=== PATIENT | male | born 1965 | race Caucasian/White ===

== ENCOUNTER 2016-10-17 06:04 | Emergency (ER) | payer MEDICAID, OTHER ==
[~2016-10-17] VITALS: Ht 182.9 cm; Wt 75.8 kg
[2016-10-17 06:19] VITALS: BP 121/71; PULSE 83; RESP 18; TEMP 97.7; O2SAT 97
[2016-10-17] MEDS ORDERED: OSEL75 PO (06:44)
[2016-10-17] MEDS ORDERED: OSELTAMIVIR PHOSPHATE 75 MG CAP PO ONE (06:45)
--- NOTE | 2016-10-17 06:45 | PD ---
HPI Chief Complaint: Cold / Flu Symptoms Time Seen by Provider: 06:32 Travel History International Travel<30 days: No Contact w/Intl Traveler<30days: No Traveled to known affect area: No History of Present Illness HPI 51-year-old male arrives with "flulike symptoms." He reports myalgias, headache , rhinorrhea, diarrhea. Duration about 2 days. He has no chest pain. He has had no fever. He also complains of left inguinal groin pain where an inguinal herniarrhaphy was performed about 6-8 months ago. He follows with general surgery in [place]. He had a few episodes of diarrhea this morning. PFSH Past Medical History Hx Anticoagulant Therapy: No Cancer: No Cardiovascular Problems: No Chemotherapy: No Cerebrovascular Accident: No Diabetes: No Diminished Hearing: No Endocrine: No Gastrointestinal Disorders: No Genitourinary: No Hepatitis: No Hiatal Hernia: No Hypertension: No Immune Disorder: No Inguinal Hernia: Yes Musculoskeletal: Yes (bursitis) Neurologic: No Psychiatric: No Reproductive: No Respiratory: No Immunizations Current: Yes Pneumonia: Yes Shingles: Yes Thyroid Disease: No Tetanus Vaccination: < 5 Years Influenza Vaccination: No Past Surgical History Abdominal Surgery: Yes (Bilat inguinal hernia repair 03/07/16) AICD: No Body Medical Devices: FOREIGN BODY (METAL) LEFT SHOULDER Hysterectomy: No Joint Replacement: No Neurologic Surgery: No Oral Surgery: Yes (wisdom teeth removal ) Pacemaker: No Other Surgery: Yes (deviated septum ) Social History Alcohol Use: Yes (4 beers per day ) Tobacco Use: Yes (1/2 pack per day ) Substance Use: No Allergies-Medications (Allergen,Severity, Reaction): Coded Allergies: No Known Allergies (Unverified , 10/17/16) Reported Meds & Prescriptions Reported Meds & Active Scripts Active No Active Prescriptions or Reported Medications Review of Systems General / Constitutional: No: Fever Gastrointestinal: Positive: Diarrhea Physical Exam Narrative GENERAL: 51-year-old male well-nourished well-developed no acute distress SKIN: Warm and dry. HEAD: Atraumatic. Normocephalic. EYES: Pupils equal and round. No scleral icterus. No injection or drainage. ENT: No nasal bleeding or discharge. Mucous membranes pink and moist. NECK: Trachea midline. No JVD. CARDIOVASCULAR: Regular rate and rhythm. No murmur appreciated. RESPIRATORY: No accessory muscle use. Clear to auscultation. Breath sounds equal bilaterally. GASTROINTESTINAL: Abdomen soft, non-tender, nondistended. Hepatic and splenic margins not palpable. MUSCULOSKELETAL: No obvious deformities. No clubbing. No cyanosis. No edema. NEUROLOGICAL: Awake and alert. No obvious cranial nerve deficits. Motor grossly within normal limits. Normal speech. PSYCHIATRIC: Appropriate mood and affect; insight and judgment normal. Data Data Last Documented VS Vital Signs Date Time Temp Pulse Resp B/P Pulse Ox O2 Delivery O2 Flow Rate FiO2 10/17/16 06:35 Room Air 10/17/16 06:19 97.7 83 18 121/71 97 MDM Medical Decision Making Medical Screen Exam Complete: Yes Emergency Medical Condition: Yes Medical Record Reviewed: Yes Differential Diagnosis Influenza, pneumonia, gastroenteritis, inguinal groin pain Narrative Course Empiric coverage for influenza is considered reasonable. The patient has general surgeon Lef[place]. Return precautions discussed. Diagnosis Primary Impression: Flu-like symptoms Additional Impression: Lt inguinal pain Referrals: General Surgeon 2 days Additional Instructions: You have a choice when it comes to health care, and we are glad that you chose [facility]. Hopefully, we have met your expectations on today's visit. You are welcome to return to [facility] at any time, as we are committed to meeting the health care needs of our community. Med/Other Pt SpecificInfo: Prescription(s) given Scripts Oseltamivir (Tamiflu)75 Mg Cap75 Mg PO BID 5 Days Ref 0 Prov:Сергей Thompson MD 10/17/16 Disposition: 01 DISCHARGE HOME Condition: Stable Сергей Thompson MD Oct 17, 2016 06:45
== END 2016-10-17 07:08 | disposition home or self-care (01) ==
LOC: PHED 06:04
DX: R10.32 Left lower quadrant pain (principal); F17.210 Nicotine dependence, cigarettes, uncomplicated
CPT/HCPCS: 99283

== ENCOUNTER 2017-01-09 10:32 | Emergency (ER) | payer MEDICAID ==
[~2017-01-09] VITALS: Ht 185.4 cm; Wt 74.8 kg
[~2017-01-09 10:32] MED LIST: OSEL75 PO
[2017-01-09 10:35] VITALS: BP 132/77; PULSE 77; RESP 16; TEMP 98.3; O2SAT 98
[2017-01-09] MEDS ORDERED: NAPR500 PO (11:00)
[2017-01-09] MEDS ORDERED: NAPROXEN 500 MG TAB PO ONE (11:00)
[2017-01-09] MEDS ORDERED: CYCL1TAB29 PO (11:00)
--- NOTE | 2017-01-09 11:00 | PD ---
HPI Chief Complaint: Back/ Neck Pain or Injury Time Seen by Provider: 10:42 Travel History International Travel<30 days: No Contact w/Intl Traveler<30days: No Traveled to known affect area: No History of Present Illness HPI 50-year-old male 5 days of neck pain. Describes pain on his lower right cervical spine, with some tenderness. He states he thinks he injured it either climbing into a boat and having to turn his neck and a funny angle or working on his car he is not sure. He has pain worse when he moves certain directions when he lifts his arm over his head. His a back and neck problems before. He your so ago he fell and broke several vertebrae in his back, did not are surgery , not sure which ones. He also had a hyperextension injury years and years ago. He has not taken anything for it. He states he's taken ibuprofen 800 mg in the past which has helped. No other complaints. History Past Medical History Medical History: Denies Significant Hx Influenza Vaccination: No Social History Alcohol Use: Yes (3 beers, daily) Tobacco Use: Yes (1/2 pack per day ) Allergies-Medications (Allergen,Severity, Reaction): Coded Allergies: No Known Allergies (Unverified , 01/09/17) Reported Meds & Prescriptions Reported Meds & Active Scripts Active No Active Prescriptions or Reported Medications Review of Systems Except as stated in HPI: all other systems reviewed are Neg Physical Exam Narrative GENERAL: Well-appearing 51-year-old man, no acute distress. SKIN: Warm and dry. CARDIOVASCULAR: Warm and well perfused. RESPIRATORY: Normal rate and effort. MUSCULOSKELETAL: Normal appearance of the neck. Full painless range of motion. Minimal pain on the lower right side the neck, just lateral to the midline, about C7. NEUROLOGICAL: Awake and alert. No gross deficits. Data Data Last Documented VS Vital Signs Date Time Temp Pulse Resp B/P Pulse Ox O2 Delivery O2 Flow Rate FiO2 01/09/17 10:35 98.3 77 16 132/77 98 Orders Naproxen (Naprosyn) (01/09/17 11:00) [facility] Medical Decision Making Medical Screen Exam Complete: Yes Emergency Medical Condition: Yes Differential Diagnosis Neck strain or sprain, muscle spasm, injury, other Narrative Course Medical decision-making new 50-year-old man with neck strain. Looks fine. No concerning neurologic symptoms. Recommend outpatient follow-up, NSAIDs, muscle relaxers as needed. Diagnosis Primary Impression: Neck strain Departure Forms: Tests/Procedures, Work Release Special Instructions: Patient can return to normal activity tomorrow, January 10. Additional Instructions: You can return to normal activity tomorrow. Take Naprosyn as prescribed. Use Flexeril if needed for muscle spasms. Do not take this medication and drive or work, do not combine this medication with alcohol or other medications. Med/Other Pt SpecificInfo: Prescription(s) given Scripts Cyclobenzaprine (Flexeril)10 Mg Tab10 Mg PO TID PRN (MUSCLE SPASM) #21 TAB Prov:Jayson Fuller MD 01/09/17 Naproxen (Naprosyn)500 Mg Ndo382 Mg PO BID PRN (PAIN SCALE 1 TO 10) #20 TAB Prov:Jayson Fuller MD 01/09/17 Disposition: 01 DISCHARGE HOME Condition: Stable Jayson Fuller MD Jan 09, 2017 11:00
== END 2017-01-09 11:09 | disposition home or self-care (01) ==
LOC: PHEFT 10:32
DX: S16.1XXA Strain of muscle, fascia and tendon at neck level, initial encounter (principal); F17.210 Nicotine dependence, cigarettes, uncomplicated; X58.XXXA Exposure to other specified factors, initial encounter; Y93.9 Activity, unspecified; Y92.9 Unspecified place or not applicable; Y99.8 Other external cause status
CPT/HCPCS: 99283

== ENCOUNTER 2017-01-23 12:19 | Emergency (ER) | payer SELFPAY ==
[~2017-01-23] VITALS: Ht 185.4 cm; Wt 74.0 kg
[~2017-01-23 12:19] MED LIST changes: +CYCL1TAB29 PO; +NAPR500 PO; -OSEL75 PO
[2017-01-23 12:26] VITALS: BP 137/82; PULSE 94; RESP 18; TEMP 98; O2SAT 96
--- NOTE | 2017-01-23 12:43 | PD ---
HPI Chief Complaint: Cold / Flu Symptoms Time Seen by Provider: 12:37 Travel History International Travel<30 days: No Contact w/Intl Traveler<30days: No Traveled to known affect area: No History of Present Illness HPI 51-year-old male presents to the emergency room for evaluation of mildly productive cough and sore throat for the past 2 days. Patient states it started with a sore/scratchy throat and developed into a cough later on. Cough is mildly productive of yellow sputum. Patient reports associated right pleuritic chest pain with deep coughing but denies any other shortness of breath or chest pain. He has a mild headache as well. Denies congestion or earache. Patient has been taking [id number] medications for symptoms without significant relief. He denies fever, chills, nausea, and vomiting. Smokes half a pack of cigarettes per day. Denies history of asthma or lung disease. PFSH Past Medical History Hx Anticoagulant Therapy: No Cancer: No Cardiovascular Problems: No Chemotherapy: No Cerebrovascular Accident: No Diabetes: No Diminished Hearing: No Endocrine: No Gastrointestinal Disorders: No Genitourinary: No Hepatitis: No Hiatal Hernia: No Hypertension: No Immune Disorder: No Inguinal Hernia: Yes Musculoskeletal: Yes (bursitis) Neurologic: No Psychiatric: No Reproductive: No Respiratory: No Immunizations Current: Yes Pneumonia: Yes Shingles: Yes Thyroid Disease: No Past Surgical History Abdominal Surgery: Yes (Bilat inguinal hernia repair w/mesh 03/07/16) AICD: No Body Medical Devices: FOREIGN BODY (METAL) LEFT SHOULDER Hysterectomy: No Joint Replacement: No Neurologic Surgery: No Oral Surgery: Yes (wisdom teeth removal ) Pacemaker: No Other Surgery: Yes (deviated septum ) Social History Alcohol Use: Yes (3 beers, daily) Tobacco Use: Yes (1/2 pack per day ) Substance Use: No Allergies-Medications (Allergen,Severity, Reaction): Coded Allergies: No Known Allergies (Unverified , 01/23/17) Reported Meds & Prescriptions Reported Meds & Active Scripts Active No Active Prescriptions or Reported Medications Review of Systems Except as stated in HPI: all other systems reviewed are Neg Physical Exam Narrative GENERAL: Well-nourished, well-developed male in no acute distress. Afebrile. Ambulatory. SKIN: Focused skin assessment warm/dry. HEAD: Normocephalic. EYES: No scleral icterus. No injection or drainage. ENT: Mucosa pink and moist. Very mild erythema without edema or exudates. No uvular edema. No uvular, palatal, or tonsillar deviation. Airway patent. Nasal turbinates appear normal without nasal blood, purulent drainage or septal hematoma. EARS: Bilateral pinnae and external canals appear within normal limits. Bilateral tympanic membranes without erythema, dullness or perforation. NECK: Supple, trachea midline. No JVD or lymphadenopathy. CARDIOVASCULAR: Regular rate and rhythm without murmurs, gallops, or rubs. RESPIRATORY: Breath sounds equal bilaterally. No accessory muscle use. Data Data Last Documented VS Vital Signs Date Time Temp Pulse Resp B/P Pulse Ox O2 Delivery O2 Flow Rate FiO2 01/23/17 12:35 96 Room Air 01/23/17 12:26 98.0 94 18 137/82 MDM Medical Decision Making Medical Screen Exam Complete: Yes Emergency Medical Condition: Yes Medical Record Reviewed: Yes Differential Diagnosis URI, flu, pneumonia, bronchitis Narrative Course 51-year-old male presents to the emergency room for evaluation of mildly productive cough and sore throat for the past 2 days. Smokes 1/2 pack cigarettes per day. Patient is afebrile and well-appearing in the emergency room. Resting comfortably in bed. He is not coughing. Lung sounds clear and equal bilaterally. No crackles, rales, wheezes, or rhonchi. No evidence of bacterial infection in the ears, nose, or throat. No indication for antibiotics at this time. This is viral URI. Patient was told to continue over -the-counter medications for symptoms and follow up with primary care physician if symptoms persist. Told to return for worsening symptoms such as fever, increasing productive cough, chest pain, shortness of breath. He understands and agrees to plan. Diagnosis Primary Impression: Upper respiratory infection Qualified Code: J00 - Acute nasopharyngitis Referrals: Primary Care Physician Patient Instructions: General Instructions, Upper Respiratory Infection (ED) Additional Instructions: Rest and drink plenty of fluids. Continue nizh-afm-[id number] medications for symptoms. Follow-up with a primary care physician if symptoms persist. Return to the emergency room for worsening symptoms. Scripts No Active Prescriptions or Reported Meds Disposition: 01 DISCHARGE HOME Condition: Stable Gabbie Decker Jan 23, 2017 12:43
== END 2017-01-23 12:49 | disposition home or self-care (01) ==
LOC: PHEFT 12:19
DX: J06.9 Acute upper respiratory infection, unspecified (principal); F17.210 Nicotine dependence, cigarettes, uncomplicated; R07.81 Pleurodynia; R51 Headache
CPT/HCPCS: 99282

== ENCOUNTER 2017-01-29 13:26 | Emergency (ER) | payer MEDICAID, OTHER ==
[~2017-01-29] VITALS: Ht 185.4 cm; Wt 73.0 kg
[2017-01-29 13:29] VITALS: BP 119/75; PULSE 87; RESP 16; TEMP 98.2; O2SAT 99
--- NOTE | 2017-01-29 14:50 | PD ---
HPI Chief Complaint: Injury Time Seen by Provider: 14:30 Travel History International Travel<30 days: No Contact w/Intl Traveler<30days: No Traveled to known affect area: No History of Present Illness HPI 51-year-old male presents to the emergency room for evaluation of right third toe pain, swelling, and bruising after injuring it 2 days ago. Patient states he thinks he broke his toe while playing soccer. He has been walking on states the pain is severe. It is localized to the proximal third toe with radiation into the foot. States he woke up this morning with large increase in swelling. He denies paresthesias. Patient has not taken anything for pain. PFSH Past Medical History Hx Anticoagulant Therapy: No Cancer: No Cardiovascular Problems: No Chemotherapy: No Cerebrovascular Accident: No Diabetes: No Diminished Hearing: No Endocrine: No Gastrointestinal Disorders: No Genitourinary: No Hepatitis: No Hiatal Hernia: No Hypertension: No Immune Disorder: No Inguinal Hernia: Yes (repaired) Musculoskeletal: Yes (bursitis) Neurologic: No Psychiatric: No Reproductive: No Respiratory: No Immunizations Current: Yes Pneumonia: Yes Shingles: Yes Thyroid Disease: No Influenza Vaccination: No Past Surgical History Abdominal Surgery: Yes (Bilat inguinal hernia repair w/mesh 03/07/16) AICD: No Body Medical Devices: FOREIGN BODY (METAL) LEFT SHOULDER Hysterectomy: No Joint Replacement: No Neurologic Surgery: No Oral Surgery: Yes (wisdom teeth removal ) Pacemaker: No Other Surgery: Yes (deviated septum metal from lt eye) Social History Alcohol Use: Yes (3 beers, daily; LAST DRINK 01/28/17) Tobacco Use: Yes (1/2 pack per day ) Substance Use: No Allergies-Medications (Allergen,Severity, Reaction): Coded Allergies: No Known Allergies (Unverified , 01/29/17) Reported Meds & Prescriptions Reported Meds & Active Scripts Active No Active Prescriptions or Reported Medications Review of Systems Except as stated in HPI: all other systems reviewed are Neg Physical Exam Narrative GENERAL: Well-nourished, well-developed male in no acute distress. Afebrile. Ambulatory. SKIN: Focused skin assessment warm/dry. Moderate amount of ecchymosis and mild erythema of the right third toe. HEAD: Normocephalic. EYES: No scleral icterus. No injection or drainage. NECK: Supple, trachea midline. No JVD or lymphadenopathy. CARDIOVASCULAR: Regular rate and rhythm without murmurs, gallops, or rubs. RESPIRATORY: Breath sounds equal bilaterally. No accessory muscle use. MUSCULOSKELETAL: No cyanosis. Moderate edema of the right third toe. Limited range of motion secondary to pain. Less than 2 second capillary refill distally. Data Data Last Documented VS Vital Signs Date Time Temp Pulse Resp B/P Pulse Ox O2 Delivery O2 Flow Rate FiO2 01/29/17 16:30 16 01/29/17 13:29 98.2 87 119/75 99 Orders Foot, Complete ([id number]) (01/29/17 ) Ketorolac Inj (Toradol Inj) (01/29/17 15:30) Splint Or Brace Apply/Monitor (01/29/17 15:39) [facility] Medical Decision Making Medical Screen Exam Complete: Yes Emergency Medical Condition: Yes Medical Record Reviewed: Yes Differential Diagnosis Fracture, sprain, strain, contusion Narrative Course 51-year-old male presents to the emergency room for evaluation of right third toe pain, swelling, and bruising for the past 2 days. Patient injured it while playing soccer. Physical exam reveals moderate edema and ecchymosis with extreme tenderness to palpation of the proximal third phalanx. Patient has been ambulatory. X-ray shows nondisplaced fracture of the third proximal phalanx. Toe was jose taped and patient given postop shoe. Told to follow up with a primary care physician or return for worsening symptoms. He understands and agrees to plan. Diagnosis Primary Impression: Toe fracture, right Qualified Code: S92.514A - Closed nondisplaced fracture of proximal phalanx of lesser toe of right foot, initial encounter Referrals: Primary Care Physician Patient Instructions: General Instructions, Toe Fracture (ED) Departure Forms: Tests/Procedures, Work Release Enter return to work date: Jan 31, 2017 Special Instructions: Light Duty until 02/04/2017 Additional Instructions: Rest and drink plenty of fluids. Take ibuprofen with food as directed, as needed for pain. Elevate, keep wrapped, Apply ice to the affected area for 20 minutes at a time, as needed for pain and swelling. Follow-up with a primary care physician. Return to the emergency room for worsening symptoms. Scripts No Active Prescriptions or Reported Meds Disposition: DISCHARGE HOME Condition: Stable Gabbie Decker Jan 29, 2017 14:50
[2017-01-29] MEDS ORDERED: KETOROLAC TROMETHAMINE 60 MG/2 ML (IM) VIAL IM ONE (15:30)
--- NOTE | 2017-01-29 16:09 | RADRPT ---
EXAM DATE/TIME: 01/29/2017 15:05 [facility] COMPARISON: No previous studies available for comparison. INDICATIONS : Right foot pain after kicking someone's alvares while playing soccer MEDICAL HISTORY : Foot and toe fractures SURGICAL HISTORY : None. ENCOUNTER: Initial ACUITY: 3 days PAIN SCORE: 8/10 LOCATION: Right foot FINDINGS: There is subtle fracturing at the distal aspect of the third proximal phalanx. This does not involve the PIP joint. It is not displaced. There is chronic degenerative change with joint space narrowin g at the first interphalangeal joint. There is some hypertrophic change seen at the medial distal as pect of the first proximal phalanx. CONCLUSION: 1. Acute nondisplaced fracturing of the distal aspect of the third proximal phalanx. 2. Degenerative change at the first interphalangeal joint. Delon Santana MD on January 29, 2017 at 15:51 Board Certified Radiologist. This report was verified electronically.
[2017-01-29 16:30] VITALS: RESP 16
[2017-01-29] MEDS ORDERED: CEPH-460 PO (16:34)
== END 2017-01-29 16:32 | disposition home or self-care (01) ==
LOC: PHED 13:26 → PHEFT 16:32
DX: S92.514A Nondisplaced fracture of proximal phalanx of right lesser toe(s), initial encounter for closed fracture (principal); X58.XXXA Exposure to other specified factors, initial encounter; Y93.66 Activity, soccer
CPT/HCPCS: 73630 ×2; 96372 ×2; 99284; J1885; L3260

== ENCOUNTER 2017-02-05 04:16 | Emergency (ER) | payer MEDICAID ==
[~2017-02-05] VITALS: Ht 182.9 cm; Wt 75.0 kg
[2017-02-05 04:23] VITALS: BP 103/71; PULSE 72; RESP 16; TEMP 97.6; O2SAT 97
[2017-02-05] MEDS ORDERED: ORPHENADRINE INJ 60 MG/2 ML AMP IM ONE (04:45)
[2017-02-05] MEDS ORDERED: KETOROLAC TROMETHAMINE 60 MG/2 ML (IM) VIAL IM ONE (04:45)
--- NOTE | 2017-02-05 04:52 | PD ---
HPI Chief Complaint: Musculoskeletal Complaint Time Seen by Provider: 04:21 Travel History International Travel<30 days: No Contact w/Intl Traveler<30days: No Traveled to known affect area: No History of Present Illness HPI The patient is a 51-year-old male, frequent visitor to this emergency department for minor problems, who complains of pain over the right greater trochanter area for 3 days. The patient states he fractured his right foot and is been walking abnormally on it. Actually the patient had a fractured third toe and was seen here on the of last month for this. PFSH Past Medical History Hx Anticoagulant Therapy: No Cancer: No Cardiovascular Problems: No Chemotherapy: No Cerebrovascular Accident: No Diabetes: No Diminished Hearing: No Endocrine: No Gastrointestinal Disorders: No Genitourinary: No Hepatitis: No Hiatal Hernia: No Hypertension: No Immune Disorder: No Inguinal Hernia: Yes (repaired) Musculoskeletal: Yes (bursitis) Neurologic: No Psychiatric: No Reproductive: No Respiratory: No Immunizations Current: Yes Pneumonia: Yes Shingles: Yes Thyroid Disease: No Past Surgical History Abdominal Surgery: Yes (Bilat inguinal hernia repair w/mesh 03/07/16) AICD: No Body Medical Devices: FOREIGN BODY (METAL) LEFT SHOULDER Hysterectomy: No Joint Replacement: No Neurologic Surgery: No Oral Surgery: Yes (wisdom teeth removal ) Pacemaker: No Other Surgery: Yes (deviated septum metal from lt eye) Social History Alcohol Use: Yes (2-3 BEERS DAILY) Tobacco Use: Yes (1/2 pack per day ) Substance Use: No Allergies-Medications (Allergen,Severity, Reaction): Coded Allergies: No Known Allergies (Unverified , 02/05/17) Reported Meds & Prescriptions Reported Meds & Active Scripts Active No Active Prescriptions or Reported Medications Review of Systems Except as stated in HPI: all other systems reviewed are Neg Physical Exam Narrative GENERAL: Well-nourished, well-developed patient. His vital signs are normal. SKIN: Focused skin assessment warm/dry. No skin rash is seen. HEAD: Normocephalic. EYES: No scleral icterus. No injection or drainage. NECK: Supple, trachea midline. No JVD or lymphadenopathy. CARDIOVASCULAR: Regular rate and rhythm without murmurs, gallops, or rubs. RESPIRATORY: Breath sounds equal bilaterally. No accessory muscle use. GASTROINTESTINAL: Abdomen soft, non-tender, nondistended. MUSCULOSKELETAL: No cyanosis, or edema. There is exquisite tenderness but no erythema over the greater trochanter on the right. No ecchymoses are seen. BACK: Nontender without obvious deformity. No CVA tenderness. Data Data Last Documented VS Vital Signs Date Time Temp Pulse Resp B/P Pulse Ox O2 Delivery O2 Flow Rate FiO2 02/05/17 04:23 97.6 72 16 103/71 97 Orders Ketorolac Inj (Toradol Inj) (02/05/17 04:45) Orphenadrine Inj (Norflex Inj) (02/05/17 04:45) Pelvis, Ap Only (Routine) (02/05/17 04:44) MDM Medical Decision Making Medical Screen Exam Complete: Yes Emergency Medical Condition: Yes Medical Record Reviewed: Yes Interpretation(s) The x-ray of the pelvis showed evidence of previous mesh used for hernia surgery but no acute findings. Differential Diagnosis Trochanteric bursitis, fracture greater trochanter, insertional tendinitis Narrative Course The patient has a right sided trochanteric bursitis. He will need to rest, use ice packs and is given Motrin, 800 mg 3 times daily. He needs to follow-up with his primary care physician this week. He is given off work for 7 days. Diagnosis Primary Impression: Trochanteric bursitis of right hip Additional Instructions: Take the Motrin regularly, 1 tablet 3 times daily. After for 5 days you have high anti-inflammatory levels and this usually goes away. Put ice locally to calm this down as well. We will give you an ice pack. Follow-up next week or later this week with your primary care physician. Med/Other Pt SpecificInfo: Prescription(s) given Scripts Tramadol 50 Mg Tab50 Mg PO Q6H PRN (PAIN) #30 TAB Ref 0 Prov:Santiago Padron MD 02/05/17 Ibuprofen 800 Mg [id number] Mg PO TID #33 TAB Ref 0 Prov:Santiago Padron MD 02/05/17 Disposition: 01 DISCHARGE HOME Condition: Stable Santiago Padron MD Feb 05, 2017 04:52
[2017-02-05] MEDS ORDERED: IBUP800T23 PO (05:44)
[2017-02-05] MEDS ORDERED: TRAM50TA PO (05:44)
--- NOTE | 2017-02-05 05:49 | RADRPT ---
EXAM DATE/TIME: 02/05/2017 05:04 [facility] COMPARISON: No previous studies available for comparison. INDICATIONS : Rightt lateral hip pain. MEDICAL HISTORY : None. SURGICAL HISTORY : Inguinal hernia repair. ENCOUNTER: Initial ACUITY: 3 days PAIN SCORE: 9/10 LOCATION: Right lateral hip FINDINGS: A single frontal view of the pelvis demonstrates no evidence of fracture. The bony pelvic ring is in tact. Bony mineralization is normal. The soft tissues are intact. CONCLUSION: Unremarkable examination of the pelvis. Jayson Dean MD on February 05, 2017 at 5:47 Board Certified Radiologist. This report was verified electronically.
== END 2017-02-05 06:05 | disposition home or self-care (01) ==
LOC: PHED 04:16
DX: M70.61 Trochanteric bursitis, right hip (principal); F17.200 Nicotine dependence, unspecified, uncomplicated; Z87.81 Personal history of (healed) traumatic fracture; Z87.39 Personal history of other diseases of the musculoskeletal system and connective tissue; Z86.69 Personal history of other diseases of the nervous system and sense organs; Y93.9 Activity, unspecified
CPT/HCPCS: 72170; 96372; 99284; J1885; J2360

== ENCOUNTER 2017-06-27 08:30 | Emergency (ER) | payer MEDICAID ==
[~2017-06-27] VITALS: Ht 182.9 cm; Wt 74.7 kg
[~2017-06-27 08:30] MED LIST changes: -CYCL1TAB29 PO; +IBUP1TAB7 PO; -NAPR500 PO; +TRAM50TA PO
[2017-06-27 08:35] VITALS: BP 143/73; PULSE 91; RESP 16; TEMP 98; O2SAT 98
--- NOTE | 2017-06-27 09:03 | PD ---
HPI Chief Complaint: Cold / Flu Symptoms Time Seen by Provider: 08:50 Travel History International Travel<30 days: No Contact w/Intl Traveler<30days: No Traveled to known affect area: No History of Present Illness HPI 51-year-old male presents emergency department with cough congestion and sore throat particularly on the right side of his throat and yesterday. The patient is a smoker states that he has not had to miss work in years and had to call in sick today because he was feeling under the weather. He relates a history that this happened to him last year and he was prescribed Tamiflu but couldn't afford it so didn't take it. He states he wouldn't be able to afford this year excess case as well. Denies any fever does endorse wet cough but has not actually seen any sputum. States that he's been having some achiness on the right side of his chest when he coughs. No abdominal pain nausea vomiting no rash. Symptoms are moderate, tense yesterday, gradually worsening, right throat. PFSH Past Medical History Hx Anticoagulant Therapy: No Cancer: No Cardiovascular Problems: No Chemotherapy: No Cerebrovascular Accident: No Diabetes: No Diminished Hearing: No Endocrine: No Gastrointestinal Disorders: No Genitourinary: No Hepatitis: No Hiatal Hernia: No Hypertension: No Immune Disorder: No Inguinal Hernia: Yes (repaired) Musculoskeletal: Yes (bursitis) Neurologic: No Psychiatric: No Reproductive: No Respiratory: No Immunizations Current: Yes Pneumonia: Yes Shingles: Yes Thyroid Disease: No Tetanus Vaccination: < 5 Years Influenza Vaccination: No Past Surgical History Abdominal Surgery: Yes (Bilat inguinal hernia repair w/mesh 03/07/16) AICD: No Body Medical Devices: FOREIGN BODY (METAL) LEFT SHOULDER Hysterectomy: No Joint Replacement: No Neurologic Surgery: No Oral Surgery: Yes (wisdom teeth removal ) Pacemaker: No Other Surgery: Yes (deviated septum metal from lt eye) Social History Alcohol Use: Yes (2-3 BEERS DAILY) Tobacco Use: Yes (1/2 pack per day ) Substance Use: No Allergies-Medications (Allergen,Severity, Reaction): Coded Allergies: No Known Allergies (Unverified Adverse Reaction, Unknown, 06/27/17) Reported Meds & Prescriptions Reported Meds & Active Scripts Active Tessalon Perles (Benzonatate) 100 Mg Cap 100 Mg PO TID PRN Review of Systems Except as stated in HPI: all other systems reviewed are Neg Physical Exam Narrative GENERAL: Well-nourished, well-developed patient. SKIN: Focused skin assessment warm/dry. HEAD: Normocephalic. EYES: No scleral icterus. No injection or drainage. ENT: TMs clear bilaterally, oropharynx minimal erythema, no swelling, we will midline. NECK: Supple, trachea midline. No JVD or lymphadenopathy. CARDIOVASCULAR: Regular rate and rhythm without murmurs, gallops, or rubs. RESPIRATORY: Breath sounds equal bilaterally. No accessory muscle use. GASTROINTESTINAL: Abdomen soft, non-tender, nondistended. MUSCULOSKELETAL: No cyanosis, or edema. BACK: Nontender without obvious deformity. No CVA tenderness. Data Data Last Documented VS Vital Signs Date Time Temp Pulse Resp B/P (MAP) Pulse Ox O2 Delivery O2 Flow Rate FiO2 06/27/17 08:42 16 98 Room Air 06/27/17 08:35 98.0 91 143/73 (96) Orders Orders Chest, Pa & Lat (06/27/17 ) Group A Rapid Strep Screen (06/27/17 09:01) Strep Culture (Group A) (06/27/17 09:08) Ed Discharge Order (06/27/17 09:33) MDM Medical Decision Making Medical Screen Exam Complete: Yes Emergency Medical Condition: Yes Differential Diagnosis Flu, strep, pneumonia, URI. Narrative Course Patient roomed emergency department, appears well and in no distress. Rapid strep negative. Patient states he wouldn't have Tamiflu if he tested positive therefore no indication to testing. Chest x-ray negative. He is stable for discharge for symptomatic management discussed return to ED criteria. Diagnosis Primary Impression: Upper respiratory infection Qualified Codes: J06.9 - Acute upper respiratory infection, unspecified Patient Instructions: General Instructions, Upper Respiratory Infection (DC) Departure Forms: Tests/Procedures, Work Release Enter return to work date: Jun 28, 2017 Med/Other Pt SpecificInfo: Prescription(s) given Scripts Benzonatate (Tessalon Perles) 100 Mg Cap 100 MG PO TID Y for COUGH, #20 CAP 0 Refills Prov: Dionisio Higgins MD 06/27/17 Disposition: 01 DISCHARGE HOME Condition: Stable Dionisio Higgins MD Jun 27, 2017 09:03
[2017-06-27] MEDS ORDERED: BENZ100 PO (09:33)
--- NOTE | 2017-06-27 09:36 | RADRPT ---
EXAM DATE/TIME: 06/27/2017 09:15 [facility] COMPARISON: No previous studies available for comparison. INDICATIONS : Cough, congestion, sore throat. MEDICAL HISTORY : smoker SURGICAL HISTORY : None. ENCOUNTER: Initial ACUITY: 2 days PAIN SCORE: 2/10 LOCATION: Right chest FINDINGS: PA and lateral views of the chest demonstrate the lungs to be symmetrically aerated without evidence of mass, infiltrate or effusion. The cardiomediastinal contours are unremarkable. Osseous structure s are intact. One of the mid to lower thoracic vertebral body shows some loss of height I suspect is unchanged when accounting the plain film in November 2014 CONCLUSION: Normal examination. Jayson Dean MD on June 27, 2017 at 9:34 Board Certified Radiologist. This report was verified electronically.
== END 2017-06-27 09:50 | disposition home or self-care (01) ==
LOC: PHED 08:30
DX: J06.9 Acute upper respiratory infection, unspecified (principal); F17.210 Nicotine dependence, cigarettes, uncomplicated
CPT/HCPCS: 71020; 87081; 87880; 99284

== ENCOUNTER 2017-09-04 09:33 | Emergency (ER) | payer MEDICAID ==
[~2017-09-04] VITALS: Ht 185.4 cm; Wt 73.1 kg
[~2017-09-04 09:33] MED LIST changes: +BENZ100 PO; -IBUP1TAB7 PO; -TRAM50TA PO
[2017-09-04 09:47] VITALS: BP 135/63; PULSE 86; RESP 16; TEMP 98.3; O2SAT 97
[2017-09-04] MEDS ORDERED: KETOROLAC TROMETHAMINE 60 MG/2 ML (IM) VIAL IM ONE (10:00)
--- NOTE | 2017-09-04 10:00 | PD ---
HPI Chief Complaint: Musculoskeletal Complaint Time Seen by Provider: 09:54 Travel History International Travel<30 days: No Contact w/Intl Traveler<30days: No Traveled to known affect area: No History of Present Illness HPI 51-year-old male presents for evaluation of rib pain. Symptoms started 3 days ago. He reports that he was underneath his car and he was rolling in order to get out from underneath the car and he rolled over his floor luther. He has had pain to the right posterior lateral rib cage since then which is sharp and worse with inspiration, coughing, sneezing. He has been using ibuprofen but symptoms persist. He has no other complaints. PFSH Past Medical History Hx Anticoagulant Therapy: No Cancer: No Cardiovascular Problems: No Chemotherapy: No Cerebrovascular Accident: No Diabetes: No Diminished Hearing: No Endocrine: No Gastrointestinal Disorders: No Genitourinary: No Hepatitis: No Hiatal Hernia: No Hypertension: No Immune Disorder: No Inguinal Hernia: Yes (repaired) Medical other: No Musculoskeletal: Yes (bursitis) Neurologic: No Psychiatric: No Reproductive: No Respiratory: No Immunizations Current: Yes Pneumonia: Yes Shingles: Yes Thyroid Disease: No Tetanus Vaccination: < 5 Years Past Surgical History Abdominal Surgery: Yes (Bilat inguinal hernia repair w/mesh 03/07/16) AICD: No Body Medical Devices: FOREIGN BODY (METAL) LEFT SHOULDER Hysterectomy: No Joint Replacement: No Neurologic Surgery: No Oral Surgery: Yes (wisdom teeth removal ) Pacemaker: No Other Surgery: Yes (deviated septum metal from lt eye) Social History Alcohol Use: Yes (2-3 BEERS DAILY) Tobacco Use: Yes (1/2 pack per day ) Substance Use: No Allergies-Medications (Allergen,Severity, Reaction): Coded Allergies: No Known Allergies (Unverified Adverse Reaction, Unknown, 09/04/17) Reported Meds & Prescriptions Reported Meds & Active Scripts Active Tylenol-Codeine #3 (Acetaminophen-Codeine) 300-30 mg Tab 1 Tab PO Q4H PRN Lidocaine Patch 12 HR (Lidocaine) 5 % Patch 1 Patch TOPICAL DAILY PRN Remove patch after [address] (Diclofenac Sodium) 75 Mg Tabdr 75 Mg PO BID 10 Days Review of Systems General / Constitutional: No: Fever, Chills HENT: No: Headaches Cardiovascular: Positive: Chest Pain or Discomfort Respiratory: No: Shortness of Breath Musculoskeletal: Positive: Pain Skin: Positive Other (denies open wounds) Physical Exam Narrative GENERAL: Well-developed well-nourished male in no acute distress SKIN: Warm and dry. HEAD: Atraumatic. Normocephalic. EYES: Pupils equal and round. No scleral icterus. No injection or drainage. ENT: No nasal bleeding or discharge. Mucous membranes pink and moist. NECK: Trachea midline. No JVD. CARDIOVASCULAR: Regular rate and rhythm. No murmur appreciated. RESPIRATORY: No accessory muscle use. Clear to auscultation. Breath sounds equal bilaterally. GASTROINTESTINAL: Abdomen soft, non-tender, nondistended. Hepatic and splenic margins not palpable. MUSCULOSKELETAL: No obvious deformities. Tender to palpation to the right posterior rib cage. No crepitus. NEUROLOGICAL: Awake and alert. No obvious cranial nerve deficits. Motor grossly within normal limits. Normal speech. Data Data Last Documented VS Vital Signs Date Time Temp Pulse Resp B/P (MAP) Pulse Ox O2 Delivery O2 Flow Rate FiO2 09/04/17 09:47 98.3 86 16 135/63 (87) 97 Orders Orders Ketorolac Inj (Toradol Inj) (09/04/17 10:00) Chest, Single Ap (09/04/17 ) Ed Discharge Order (09/04/17 10:42) Resp Incentive Spirometry (09/04/17 ) MDM Medical Decision Making Medical Screen Exam Complete: Yes Emergency Medical Condition: Yes Medical Record Reviewed: Yes Differential Diagnosis Rib contusion, fracture, pneumothorax Narrative Course Chest x-ray has been ordered. Toradol will be administered. X-ray imaging reveals a subtle nondisplaced right sided ninth rib fracture consistent with the patient's area of pain. He will be discharged with prescriptions for Tylenol with codeine, diclofenac, Lidoderm patches, as well as an incentive spirometer. Diagnosis Primary Impression: Rib fracture Additional Instructions: Medication as needed. Do not drive or drink alcohol when taking Tylenol with codeine. Take diclofenac with meals. Use incentive spirometer 10 times an hour while awake. Follow-up with primary care physician in one to 2 weeks. Return for any emergent medical conditions. Med/Other Pt SpecificInfo: Prescription(s) given Scripts Acetaminophen-Codeine (Tylenol-Codeine #3) 300-30 mg Tab 1 TAB PO Q4H Y for PAIN, #15 TAB 0 Refills Prov: MacMahon,Rigo MD 09/04/17 Lidocaine Patch 12 HR (Lidocaine Patch 12 HR) 5 % Patch 1 PATCH TOPICAL DAILY Y for PAIN, #1 BOX 1 Refill Remove patch after 12 hours Prov: Rigo Crow MD 09/04/[address] (Diclofenac Sodium DR) 75 Mg Tabdr 75 MG PO BID for 10 Days, #20 TAB 0 Refills Prov: Rigo Crow MD 09/04/17 Disposition: 01 DISCHARGE HOME Condition: Stable Timothy England Sep 04, 2017 10:00
--- NOTE | 2017-09-04 10:31 | RADRPT ---
EXAM DATE/TIME: 09/04/2017 10:15 This report includes an Addendum and supersedes previous reports for this exam. [facility] COMPARISON: CHEST PA & LAT, June 27, 2017, 9:15. INDICATIONS : Right posterior rib pain, patient rolled over a ramjack. MEDICAL HISTORY : None. SURGICAL HISTORY : None. ENCOUNTER: Initial ACUITY: 2 days PAIN SCORE: 7/10 LOCATION: Right posterior ribs FINDINGS: A single view of the chest demonstrates the lungs to be symmetrically aerated without evidence of mas s, infiltrate or effusion. The cardiomediastinal contours are unremarkable. Osseous structures are intact. CONCLUSION: 1. No acute cardiopulmonary disease. Maximo Mereidth MD on September 04, 2017 at 10:27 Board Certified Radiologist. This report was verified electronically. ADDENDUM: Subtle cortical step-off in the lateral right ninth rib may reflect a nondisplaced fracture. Maximo Meredith MD on September 04, 2017 at 11:48 Board Certified Radiologist. This report was verified electronically.
[2017-09-04] MEDS ORDERED: DICL75TA PO (10:43)
[2017-09-04] MEDS ORDERED: LIDO1PAD52 TOPICAL (10:43)
[2017-09-04] MEDS ORDERED: TYLETAB34 PO (11:47)
== END 2017-09-04 11:58 | disposition home or self-care (01) ==
LOC: PHEFT 09:33
DX: S22.31XA Fracture of one rib, right side, initial encounter for closed fracture (principal); F17.210 Nicotine dependence, cigarettes, uncomplicated; W22.8XXA Striking against or struck by other objects, initial encounter
CPT/HCPCS: 71045; 94150; 96372; 99284; J1885